=== PATIENT | female | born 1965 | race American Indian/Alaskan Native ===

== ENCOUNTER 2019-05-08 09:31 | Emergency (ER) | payer OTHER, BC ==
[2019-05-08 09:39] VITALS: BMI 24.7
[2019-05-08] MEDS ORDERED: METOCLOPRAMIDE HCL INJECTION 10 MG/2 ML VIAL IVPUSH ONE (10:05)
[2019-05-08] MEDS ORDERED: SODIUM CHLORIDE 1,000 ML IV ONE (10:05)
--- NOTE | 2019-05-08 10:22 | PDOC ---
Documentation entered by Jeovanny Crowley SCRIBE, acting as scribe for Fede Workman MD. Fede Workman MD: This documentation has been prepared by the Carline waldron Elijah, SCRIBE, under my direction and personally reviewed by me in its entirety. I confirm that the documentation accurately reflects all work, treatment, procedures, and medical decision making performed by me. History of Present Illness - General Chief Complaint: Headache Stated Complaint: HEADACHE/VOMITING Time Seen by Provider: 05/08/19 09:57 History Source: Patient, Family Exam Limitations: No Limitations - History of Present Illness Initial Comments: 05/08/19 10:05 Patient is a 54 year old female with no reported past medical who presents to the ED with a Headache and Vomiting starting this morning when she woke up. Patient reports that she woke up this morning and began to have a Left-Sided headache which she describes as "pounding and pressure" that is worse in the occiputum. Patient notes that this headache is similar to headaches she has gotten in the past but when she found her Blood Pressure to be elevated it prompted the visit to the ED. Patient also had x3 episodes of Non-Bloody vomiting and associates decreased appetite. Patient denies taking anything for pain. Pt endorses an epsidoe of chest pressure 7 days ago that resolved after a few min and denies any recnet cp, sob, exertional sypmtoms, disaphoresis. Pt also endorses an occasional tingling in her L finger tips for the past few weeDenies changes in vision, numbness/tingling/weakness, fever, chill, cp, SOB, Abdominal pain, back pain, diarrhea, Bloody/darkened stool, Allergies: NKA PCP: Dr. Villanueva Past History - Past Medical History Allergies/Adverse Reactions: Allergies Allergy/AdvReac Type Severity Reaction Status Date / Time No Known Allergies Allergy Verified 05/08/19 09:35 Home Medications: Ambulatory Orders NK [No Known Home Medication] 05/08/19 COPD: No - Surgical History Cholecystectomy: Yes - Immunization History Immunization Up to Date: Yes - Suicide/Smoking/Psychosocial Hx Smoking History: Never smoked Information on smoking cessation initiated: No Hx Alcohol Use: No Drug/Substance Use Hx: No Review of Systems - Review of Systems Comments:: 05/08/19 10:12 Constitutional - Pt denies Fever, Chills, weakness, HEENT: denies vision changes, sore throat Respiratory: Denies cough, sob, hemoptysis Cardiac: denies chest pain, palpitations, light headedness, leg swelling Abd/GI: +Nausea +Vomiting. denies abd pain, blood per rectum, melena, diarrhea : denies dysuria, frequency, discharge Musculskelatal - denies back pain, joint swelling skin - denies bruising, erythema, rash neurological: +Headache denies numbness, focal weakness, tingling, ataxia, weakness hematologic: denies anemia, easy bruising, easy bleeding *Physical Exam - Vital Signs Last Vital Signs Temp Pulse Resp BP Pulse Ox 73 17 160/81 98 05/08/19 09:35 05/08/19 09:35 05/08/19 09:35 05/08/19 09:35 - Physical Exam Comments: 05/08/19 10:13 GENERAL: The patient is awake, alert, and fully oriented, Nontoxic - in no acute distress. HEAD: Normocephalic, atraumatic, EYES: extraocular movements intact, sclera anicteric, conjunctiva clear. ENT: +Dry Mucous Membranes. Normal voice. NECK: Normal range of motion, supple without lymphadenopathy, JVD, or masses. LUNGS: Breath sounds equal, clear to auscultation bilaterally. No wheezes, no crackles, no rales. HEART: Regular rate and rhythm, normal S1 and S2 without murmur, rub or gallop. ABDOMEN: Soft, nontender, normoactive bowel sounds. No guarding, no rebound. No masses. EXTREMITIES: Normal range of motion, no edema. No clubbing or cyanosis. No cords, erythema, or tenderness. NEUROLOGICAL: normal visal correa by confrontation,cn 2-12 intact, strength intact and symmetric in al 4 extremities, snesation grossly intact and symmetric in all 4 extremities, Normal speech, normal gait. PSYCH: Normal mood, normal affect. SKIN: Warm, Dry, normal turgor, no rashes or lesions noted. Heart Score/ECG Review - ECG Impressions Comment:: 05/08/19 11:14 Twelve-lead EKG was performed and reviewed by me. There is normal sinus rhythm with a normal rate. rate of [address] wave changes ED Treatment Course - LABORATORY CBC & Chemistry Diagram: 05/08/19 10:21 05/08/19 10:21 Medical Decision Making - Medical Decision Making 05/08/19 10:16 66y F n osignificant pmhx presents with complaint of headache since awakening this morning, nature of headache is consistent with prior headahes, but pt concerned that her BP is also elevated. p notes she has had 3 episodes of nbnb vomiting without any focal neurologic complaints. (pt does enodrse some L finger tip tingling for the past several weeks that she attributes to a chronic shoulder condition). suspect migraine vs tension headache headache, clinical hx inconsistent with sah /sdh or other acute cause of h/a will treat symptomatically w reglan/fliuds. pt also mentionts rmote history of chest pressure last week that has not recurred - will obtian a trop and ekg A portion of this note was documented by scribe services under my direction. I have reviewed the details of the note, within reason, and agree with the documentation with the following case summary and management plan written by me 05/08/19 12:29 pts labs reviewed, unermarkble trop/ekg unremarkable pt was resassessed and is feeling improved, with complete resolution of her headache will dc the pt to fu with dr. ward I discussed the physical exam findings, ancillary test results and final diagnoses with the patient. I answered all of the patient's questions. The patient was satisfied with the care received and felt comfortable with the discharge plan and treatment plan. The patient will call their primary care physician within 24 hours to arrange follow-up and will return to the Emergency Department with any new, persistent or worsening symptoms. 05/08/19 12:46 repeta bp improved *DC/Admit/Observation/Transfer Diagnosis at time of Disposition: Tension headache - Discharge Dispostion Disposition: HOME Condition at time of disposition: Improved Decision to Admit order: No - Referrals Referrals: Renee Villanueva MD [Primary Care Provider] - - Patient Instructions Printed Discharge Instructions: DI for Hormonal and Tension Headaches Additional Instructions: Return to the emergency department immediately with ANY new, persistent or worsening symptoms including worsening headache, vision changes, numbness/ tingling/weakness, persistent nausea and vomiting or any other concerns. Make sure you are getting adaqute sleep and hydration. You MUST call and follow up with your doctor tomorrow for further evaluation of your symptoms. Your emergency department visit is not complete without a followup with your doctor for reevaluation. Results were discussed with you. Please make sure your doctor reviews the results of your emergency evaluation. Print Language: SYRIAC - Post Discharge Activity
[2019-05-08 10:38] LABS: BASO % 0.9 % (0-2.0); EOS % 1.1 % (0-4.5); HEMATOCRIT 36.4 % (32.4-45.2); HEMOGLOBIN 12.9 GM/dL (10.7-15.3); LYMPH % 14.1 % (8-40); MCH 28.9 pg (25.7-33.7); MCHC 35.5 g/dl (32.0-36.0); MEAN CELL VOLUME 81.4 fl (80-96); MEAN PLT VOLUME 7.8 fl (7.5-11.1); MONO % 3.7 % (3.8-10.2); NEUT % 80.2 % (42.8-82.8); PLATELET COUNT 256 K/MM3 (134-434); RBC 4.47 M/mm3 (3.60-5.2); WHITE BLOOD COUNT 7.8 K/mm3 (4.0-10.0)
[2019-05-08] MEDS ORDERED: METOCLOPRAMIDE HCL INJECTION 10 MG/2 ML VIAL ONE (10:57)
[2019-05-08 11:13] LABS: BILIRUBIN,TOTAL 1.2 mg/dL (0.2-1); BLOOD UREA NITROGEN 13.8 mg/dL (7-18); CALCIUM 9.3 mg/dL (8.5-10.1); CREATININE 0.6 mg/dL (0.55-1.3); TOT PROT 7.8 g/dl (6.4-8.2)
[2019-05-08] MEDS ORDERED: ACETAMINOPHEN 325 MG TABLET (FP) PO ONE (11:23)
[2019-05-08] MEDS ORDERED: ACETAMINOPHEN 325 MG TABLET (FP) ONE (11:30)
[2019-05-08 12:44] VITALS: BP 131/89; PULSE 75; TEMP 97.7
--- NOTE | 2019-05-10 11:42 | EKG ---
Test Reason : Blood Pressure : / mmHG Vent. Rate : 079 BPM Atrial Rate : 079 BPM P-R Int : 152 ms QRS Dur : 072 ms QT Int : 396 ms P-R-T Axes : 025 039 033 degrees QTc Int : 454 ms NORMAL SINUS RHYTHM CANNOT RULE OUT ANTERIOR INFARCT , AGE UNDETERMINED ABNORMAL ECG NO PREVIOUS ECGS AVAILABLE Confirmed by BONI VERA MD ([id number]) on 05/10/2019 11:41:49 AM Referred By: Confirmed By:BONI VERA MD
== END 2019-05-08 12:50 | disposition home or self-care (01) ==
LOC: JER 09:31
PROC: 3E0337Z Introduction of Electrolytic and Water Balance Substance into Peripheral Vein, Percutaneous Approach (ICD-10-PCS; principal; 2019-05-08)
PROC: 3E033GC Introduction of Other Therapeutic Substance into Peripheral Vein, Percutaneous Approach (ICD-10-PCS; 2019-05-08)
DX: G44.209 Tension-type headache, unspecified, not intractable (principal)
CPT/HCPCS: 36415; 80053; 82550; 84484; 85025; 93005; 93010; 99284-25; J7030